=== PATIENT | male | born 1950 | race Caucasian/White ===

== ENCOUNTER 2017-10-31 11:27 | Emergency (ER) | payer MEDICARE, BC ==
[2017-10-31] MEDS ORDERED: ISOVUE-370 76%-LOCM 1 ML ONE (11:34)
[2017-10-31 11:45] LABS: #Eosinphils 0.1 thou/uL (0.0-0.7); #Lymphocytes 1.7 thou/uL (1.20-3.40); #Monocytes 0.5 thou/uL (0.11-0.59); #Neutrophils 4.6 thou/uL (1.40-6.50); %Basophils 0.1 % (0.0-1.0); %Eosinophils 1.4 % (0.0-10.0); %Lymphocytes 24.9 % (21.0-51.0); %Monocytes 6.6 % (0.0-10.0); Hemoglobin 14.4 g/dL (14.0-18.0); Mean Corpuscular HGB CONC 33.1 g/dL (32.0-36.0); Mean Corpuscular Hemoglobin 27.6 pg (27.0-31.0); Mean Corpuscular Volume 83.4 fl (80.0-94.0); Mean Platelet Volume 7.3 fL (7.4-10.4); Platelet Count 227 thou/uL (130-400); RBC Distribution Width 13.2 % (11.5-14.5); Red Blood Cell (RBC) Count 5.21 mill/uL (4.70-6.10); White Blood Cell (WBC) Count 6.8 thou/uL (4.8-10.8)
--- NOTE | 2017-10-31 11:48 | CT ---
NONCONTRAST HEAD CT: HISTORY: Facial droop. Left-sided symptoms. Stroke alert. COMPARISON: None. TECHNIQUE: A noncontrast head CT is performed in the axial plane. FINDINGS: No parenchymal hemorrhage. No extraaxial hematoma. No midline shift. Basilar cisterns are patent. Brain volume is age appropriate. There appears to be loss of the left insular ribbon sign. Subtle hyperdensity in the left M1 segment. The possibility of a thrombus cannot be excluded. Cavernous ca rotid atherosclerosis is noted. Calvarium is intact. Adequate aeration of the sinuses and mastoid air cells. IMPRESSION: Loss of the left insular ribbon sign suggesting ischemic change. Hyperdense left M1 segment, possibl y due to a thrombus. Results of the study discussed with Dr. Summers 10/31/17 at 11:38 a.m. CODE CR POS: [facility]
[2017-10-31 11:51] LABS: Prothrombin Time 13.7 SEC (12.0-14.7)
[2017-10-31 12:04] LABS: ALT (SGPT) 21 U/L (8-55); AST (SGOT) 22 U/L (5-34); Albumin 4.6 g/dL (3.4-4.8); Alkaline Phosphatase 67 U/L (40-150); Anion Gap 12 mmol/L (10-20); BUN (Urea Nitrogen) 18 mg/dL (8.4-25.7); Bilirubin, Total 0.6 mg/dL (0.2-1.2); CKMB 1.4 ng/mL (0-6.6); Calc. Creatinine Clearance 0 mL/min (70-130); Calcium 9.4 mg/dL (7.8-10.44); Carbon Dioxide 27 mmol/L (23-31); Chloride 104 mmol/L (98-107); Estimated GFR-MDRD 57; Globulin 3.1 g/dL (2.4-3.5); Glucose 130 mg/dL (80-115); Potassium 4.6 mmol/L (3.5-5.1); Protein, Total 7.7 g/dL (5.8-8.1); Sodium 138 mmol/L (136-145); Troponin I Less than 0.010 ng/mL (< 0.028)
--- NOTE | 2017-10-31 12:45 | CT ---
CT ANGIOGRAM OF THE HEAD AND NECK: HISTORY: Left-sided facial droop. COMPARISON: None. TECHNIQUE: CT angiogram of the head and neck was performed in the axial plane. Three-dimensional reformatted im ages are submitted for interpretation. FINDINGS: Previously suggested loss of venegas-white matter differentiation of the left insular cortex is difficul t to appreciate on the current exam due to technique. Bilateral ocular lenses are appropriately located. Both globes are intact. Retrobulbar fat is prese rved. Aerodigestive tract is patent. No mucosal abnormality. Midline fatty raphae of the tongue is preser cheli. Epiglottis has a normal caliber. Preepiglottic fat is preserved. Hypodensity of the left thyr oid lobe is incompletely evaluated. Atrophy of both parotid glands with right greater than left paro tid calcifications. Submandibular gland is atrophic bilaterally. No evidence of lymphadenopathy by size criteria. Varying degrees of central canal stenosis and foraminal narrowing on the basis of degenerative change . Vertebral body height is maintained. No fracture. CT ANGIOGRAM: The aortic arch has appropriate enhancement and luminal diameter. Bovine arch is noted. RIGHT CAROTID: The right carotid demonstrates appropriate enhancement and luminal diameter. No significant stenosis . Minimal atherosclerotic disease in the carotid bifurcation. LEFT CAROTID: Left carotid artery has appropriate enhancement and luminal diameter. Left carotid bifurcation and i nternal carotid artery have appropriate enhancement and luminal diameter. Both cervical vertebral body arteries are patent throughout their course in the neck. Right vertebra l artery is dominant. Bilateral subclavian arteries are unremarkable. CT ANGIOGRAM OF THE HEAD: Distal cervical and intracranial internal carotid arteries have appropriate enhancement and luminal d iameter. ANTERIOR CIRCULATION: Symmetric enhancement and luminal diameter of the A1 and M1 segments. No evidence of a left M1 throm bus. Proximal MCA branches and proximal A2 segments are unremarkable. POSTERIOR CIRCULATION: Left vertebral artery is diminutive but does apply a normal-appearing basilar artery. The right vert ebral artery is unremarkable. Both PICA artery origins are unremarkable. The right [employer] has a origin. The left P1 segment is unremarkable. IMPRESSION: No evidence of thrombus in the level of the [place]. Results of the study were discussed with Dr. Summers 10/31/17 at 11:54 a.m. CODE CR POS: [facility]
== END 2017-10-31 12:24 | disposition home or self-care (01) ==
LOC: ERS 11:27
DX: G51.0 Bell's palsy (principal); I25.2 Old myocardial infarction; I10 Essential (primary) hypertension; F32.9 Major depressive disorder, single episode, unspecified; Z79.84 Long term (current) use of oral hypoglycemic drugs; Z79.82 Long term (current) use of aspirin; Z79.899 Other long term (current) drug therapy
CPT/HCPCS: 36416; 70450; 70496; 70498; 80053; 82553; 84484; 85025; 85610; 85730; 93005

== ENCOUNTER 2018-03-29 12:56 | Outpatient (CLI) | payer MEDICARE, BC ==
[2018-03-29 14:08] LABS: #Eosinphils 0.2 thou/uL (0.0-0.7); #Lymphocytes 1.6 thou/uL (1.20-3.40); #Monocytes 0.4 thou/uL (0.11-0.59); #Neutrophils 3.9 thou/uL (1.40-6.50); %Basophils 0.3 % (0.0-1.0); %Eosinophils 2.7 % (0.0-10.0); %Lymphocytes 25.5 % (21.0-51.0); %Monocytes 6.9 % (0.0-10.0); %Neutrophils 64.6 % (42.0-75.0); Hemoglobin 13.8 g/dL (14.0-18.0); Mean Corpuscular HGB CONC 31.4 g/dL (32.0-36.0); Mean Corpuscular Hemoglobin 26.7 pg (27.0-31.0); Mean Platelet Volume 7.7 fL (7.4-10.4); Platelet Count 230 thou/uL (130-400); RBC Distribution Width 13.4 % (11.5-14.5); Red Blood Cell (RBC) Count 5.17 mill/uL (4.70-6.10); White Blood Cell (WBC) Count 6.1 thou/uL (4.8-10.8)
[2018-03-29 14:17] LABS: PTT 32.9 SEC (22.9-36.1); Prothrombin Time 13.7 SEC (12.0-14.7)
[2018-03-29 14:39] LABS: ALT (SGPT) 14 U/L (8-55); AST (SGOT) 14 U/L (5-34); Albumin 4.5 g/dL (3.4-4.8); Alkaline Phosphatase 60 U/L (40-150); Anion Gap 10 mmol/L (10-20); BUN (Urea Nitrogen) 20 mg/dL (8.4-25.7); Bilirubin, Total 0.3 mg/dL (0.2-1.2); Calc. Creatinine Clearance 0 mL/min (70-130); Calcium 9.6 mg/dL (7.8-10.44); Carbon Dioxide 27 mmol/L (23-31); Chloride 107 mmol/L (98-107); Estimated GFR-MDRD 62; Globulin 2.7 g/dL (2.4-3.5); Glucose 94 mg/dL (80-115); Potassium 4.3 mmol/L (3.5-5.1); Protein, Total 7.2 g/dL (5.8-8.1); Sodium 140 mmol/L (136-145)
== END 2018-03-29 12:57 | disposition home or self-care (01) ==
LOC: LABBT 12:56
PROVIDERS: ATTEND Internal Medicine Cardiovascular Disease
DX: Z01.818 Encounter for other preprocedural examination (principal)
CPT/HCPCS: 80053; 85025; 85610; 85730

== ENCOUNTER 2018-04-01 05:33 | Day surgery (SDC) | payer MEDICARE, BC ==
[2018-03-29 13:26] VITALS: BMI 25.3
[2018-04-01] MEDS ORDERED: Diazepam 5 MG TAB ONE (06:46)
[2018-04-01] MEDS ORDERED: Fentanyl 100 MCG/2 ML VIAL ONE (07:32)
[2018-04-01] MEDS ORDERED: Midazolam HCl 2 mg/2 ml Vial ONE (07:32)
--- NOTE | 2018-04-01 12:55 | DIS ---
Mr. Rincon underwent cardiac catheterization today. It revealed that he has a patent internal mammary to the LAD, patent vein graft to circumflex, obtuse marginal system, patent graft to the diagonal bra nch, occluded graft to a very small diffusely diseased right coronary artery. The vessel is still pa tent, but there is diffuse atherosclerosis distally with a very small distribution. The patient has moderate to severe aortic stenosis. ASSESSMENT: 1. Coronary artery disease, medical therapy is appropriate. 2. Aortic stenosis looks moderate to severe. 3. He has exertional angina. PLAN: 1. Add nitrates, Imdur 30 mg tablet half pill a day for 4 days, then 1 a day. 2. Nitroglycerin if needed. 3. I will see him again in a month. If symptoms persist, we could consider proceeding to trying to arrange for TAVR that would be his best option instead of open heart surgery as the other grafts are all patent with good flow. He is also on Effient. I think it is reasonable to take him off Effient when he comes back for followup next trip and change him to Plavix, clopidogrel. Ultimately take him off of dual antiplatelet therapy, but for now, continue these medicines.
== END 2018-04-01 12:50 | disposition home or self-care (01) ==
LOC: CCL 05:33
PROVIDERS: ATTEND Internal Medicine Cardiovascular Disease
PROC: 4A023N7 Measurement of Cardiac Sampling and Pressure, Left Heart, Percutaneous Approach (ICD-10-PCS; principal; 2018-04-01)
PROC: B2111ZZ Fluoroscopy of Multiple Coronary Arteries using Low Osmolar Contrast (ICD-10-PCS; 2018-04-01)
PROC: B2131ZZ Fluoroscopy of Multiple Coronary Artery Bypass Grafts using Low Osmolar Contrast (ICD-10-PCS; 2018-04-01)
PROC: B2181ZZ Fluoroscopy of Left Internal Mammary Bypass Graft using Low Osmolar Contrast (ICD-10-PCS; 2018-04-01)
DX: I25.118 Atherosclerotic heart disease of native coronary artery with other forms of angina pectoris (principal); I25.708 Atherosclerosis of coronary artery bypass graft(s), unspecified, with other forms of angina pectoris; I35.0 Nonrheumatic aortic (valve) stenosis; I11.0 Hypertensive heart disease with heart failure; I50.22 Chronic systolic (congestive) heart failure; E78.5 Hyperlipidemia, unspecified; E78.00 Pure hypercholesterolemia, unspecified; E11.9 Type 2 diabetes mellitus without complications; I25.2 Old myocardial infarction; Z79.82 Long term (current) use of aspirin; Z79.84 Long term (current) use of oral hypoglycemic drugs; Z79.899 Other long term (current) drug therapy; Z95.1 Presence of aortocoronary bypass graft; Z95.5 Presence of coronary angioplasty implant and graft
CPT/HCPCS: 76942; 93455; 99152; 99153; C1769; J1644; J2250; J3010

== ENCOUNTER 2020-07-09 07:00 | Outpatient (CLI) | payer MEDICARE, BC ==
[2020-07-09 14:29] LABS: Hemoglobin 14.6 g/dL (14.0-18.0); Mean Corpuscular HGB CONC 31.3 G/DL (32.0-36.0); Mean Corpuscular Hemoglobin 26.8 PG (27.0-33.0); Mean Corpuscular Volume 85.7 fl (80.0-100.0); Mean Platelet Volume 10.1 fl (7.4-10.4); Platelet Count 244 10x3/uL (130-400); RBC Distribution Width 13.7 % (11.5-14.5); Red Blood Cell (RBC) Count 5.44 10x6/uL (4.40-5.80); White Blood Cell (WBC) Count 7.7 10x3/uL (4.5-11.0)
[2020-07-09 14:52] LABS: INR-International Normal Ratio 1.1; PTT 32.9 sec (22.0-33.0); Prothrombin Time 11.1 sec (9.5-12.1)
[2020-07-09 14:56] LABS: Anion Gap 16 mmol/L (10-20); BUN (Urea Nitrogen) 24 mg/dL (8.4-25.7); Calc. Creatinine Clearance 0 mL/min (70-130); Calcium 9.6 mg/dL (7.8-10.44); Carbon Dioxide 25 mmol/L (23-31); Chloride 103 mmol/L (98-107); Glucose 141 mg/dL (80-115); Potassium 4.8 mmol/L (3.5-5.1); Sodium 139 mmol/L (136-145)
[2020-07-10 05:28] LABS: SARS-CoV-2 PCR by NAA Not Detected (NotDetected)
== END 2020-07-09 07:01 | disposition home or self-care (01) ==
LOC: LABBT 07:00
PROVIDERS: ATTEND Urology
DX: Z01.812 Encounter for preprocedural laboratory examination (principal); Z20.822 Contact with and (suspected) exposure to COVID-19; N48.89 Other specified disorders of penis
CPT/HCPCS: 80048; 85027; 85610; 85730; U0003; U0005; 87635

== ENCOUNTER 2020-07-12 10:44 | Day surgery (SDC) | payer MEDICARE, BC ==
[2020-07-10 14:33] VITALS: BMI 25.3
[~2020-07-12 10:44] MED LIST: Dexamethasone 20 MG/5 ML VIAL ONE; Ondansetron PF 4 MG/2 ML Vial ONE; PROPOFOL 200 MG/20 ML VIAL ONE; Succinylcholine 200 MG/10 ml SYRINGE FS ONE
[2020-07-12] MEDS ORDERED: Famotidine/PF 20 mg/2ml Vial ONE (12:05)
[2020-07-12] MEDS ORDERED: Bupivacaine PF 0.5% 30 ML VIAL ONE (12:17)
[2020-07-12] MEDS ORDERED: Bacitracin Zinc Ointment 30 gm TUBE ONE (12:17)
[2020-07-12] MEDS ORDERED: Lidocaine 2% PF 5 ML VIAL ONE (12:19)
[2020-07-12] MEDS ORDERED: Fentanyl 100 MCG/2 ML VIAL ONE (12:30)
--- NOTE | 2020-07-12 15:11 | OP ---
DATE OF PROCEDURE: 07/12/2020 PREOPERATIVE DIAGNOSIS: Penile lesions. POSTOPERATIVE DIAGNOSIS: Penile lesions. PROCEDURE PERFORMED: 1. Biopsy of left inguinal lesion. 2. Biopsy of penile lesion. 3. Laser desiccation of numerous penile lesions. ANESTHETIC: General with local. ESTIMATED BLOOD LOSS: Less than 50 mL. FINDINGS: He had a warty lesion in the left inguinal region that was excised and closed. He had numerous warty lesions mainly on the ventral aspect of the penis. One of these was excised for tissue identification. The rest were destroyed with the laser. DESCRIPTION OF PROCEDURE: After obtaining written and verbal consent from the patient after receiving IV Ancef, he was taken to the operating suite. He was placed in the supine position on the treatment table. PlexiPulses were placed in his lower extremities and turned on. He was given a general anesthetic and oral intubation. He was shaved and then sterilely prepped and draped. We excised the left inguinal lesion with a small skin scalpel and then cauterized any bleeding vessels and then closed this with interrupted 3-0 chromic stitches. We excised one of the lesions on the ventral aspect of the penis and closed that also. We then used the holmium laser to laser desiccate the rest of these lesions, most of them were on the dorsum. There was one near the circumcision site on the ventrum. These were done by destroying the superficial tissue with the laser and then brushing it off with a 4x4, and then doing this until there was no further evidence of any lesions seen. Once this was completed, a dressing was placed of the left inguinal region. Triple antibiotic was used to cover the penile lesions with fluffs and 4x4s were placed. He was then awakened, extubated, taken by yonatan to the recovery room. Job ID: [id number]
[2020-07-12] MEDS ORDERED: Cephalexin 250 MG CAP PO SCH (21:00)
== END 2020-07-12 15:07 | disposition home or self-care (01) ==
LOC: SDC 10:44
PROVIDERS: ATTEND Urology
PROC: 0V5SXZZ Destruction of Penis, External Approach (ICD-10-PCS; principal; 2020-07-12)
DX: D29.0 Benign neoplasm of penis (principal); L82.1 Other seborrheic keratosis; K21.9 Gastro-esophageal reflux disease without esophagitis; Z79.01 Long term (current) use of anticoagulants; Z79.82 Long term (current) use of aspirin; Z79.84 Long term (current) use of oral hypoglycemic drugs; Z79.899 Other long term (current) drug therapy; Z95.1 Presence of aortocoronary bypass graft; Z95.2 Presence of prosthetic heart valve; Z95.5 Presence of coronary angioplasty implant and graft
CPT/HCPCS: 88305; 93005; 93010; J0690; J1100; J2001; J2405; J2704; J3010; S0020; S0028